=== PATIENT | female | born 2000 | race Asian ===

== ENCOUNTER 2021-02-27 21:10 | Emergency (ER) | payer OTHER, SELFPAY ==
--- NOTE | ~2021-02-27 | XR_ITS ---
EXAMINATION: XR chest 1V portable DATE: 02/27/2021 23:54 INDICATION: Cough, fever and runny nose. TECHNIQUE: frontal view of the chest was obtained. COMPARISON: None FINDINGS: The lungs are clear with no focal airspace opacities, pulmonary edema, pleural effusion or pneumothor ax. The cardiomediastinal silhouette is normal. S-shaped thoracic scoliosis. 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 IMPRESSION: 1. No acute cardiopulmonary disease. 2. 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 Reviewed, dictated and finalized at location A. [employer]
[2021-02-27 21:41] VITALS: BP 102/72; PULSE 144; RESP 20; TEMP 38.2; O2SAT 100
[2021-02-27] MEDS: ACETAMINOPHEN 500 MG TABLET 1000 MG PO (23:58)
[2021-02-27] MEDS: KETOROLAC 30 MG/ML VIAL (*BKC) IM (23:59)
--- NOTE | 2021-02-28 01:05 | ED.GENADULT ---
HPI - General Adult General Chief complaint: Upper Respiratory Infection Stated complaint: URI w/ fever Time Seen by Provider: 02/27/21 23:33 History of Present Illness HPI narrative: Patient is a 21-year-old female presents the emergency department with chief complaint of fever body aches and generalized malaise. The patient reports she has been vaccinated for Covid reports that she is feeling unwell reports that she has finals coming up and reports that she is also felt as her hearts been racing. Patient reports she had some posttussive nausea. Related Data Allergies Allergy/AdvReac Type Severity Reaction Status Date / Time No Known Allergies Allergy Verified 02/27/21 21:14 Review of Systems Review of Systems: A 10 system review of systems was completed on the patient and is negative except for what is stated in the HPI. Nursing and ancillary documentation was reviewed. Exam Narrative: GENERAL: Well-appearing, well-nourished, and in no acute distress. HEAD: Normocephalic, atraumatic. EYES: PERRLA and EOMI. ENT: Nares clear, no rhinorrhea or epistaxis. Mucous membranes moist. NECK: Supple. CHEST: Clear to auscultation. No respiratory distress. HEART: Regular rate and rhythm. No murmur heard. Normal peripheral pulses. ABDOMEN: Soft, nontender, nondistended, normal active bowel sounds. EXTREMITIES: Normal range of motion. No edema. SKIN: Warm, dry, no rash. NEURO: No focal deficits. Alert and oriented x3. PSYCH: Normal mood and affect. Course Course Emergency Course: Chest x-ray shows no focal infiltrate Patient is positive for influenza A Strep was negative Vital Signs Vital signs: Vital Signs Temperature 38.2 C H 02/27/21 21:41 Pulse Rate 144 H 02/27/21 21:41 Respiratory Rate 20 02/27/21 21:41 Blood Pressure 102/72 02/27/21 21:41 Pulse Oximetry 100 02/27/21 21:41 Temperature 38.2 C H 02/27/21 21:41 Pulse Rate 144 H 02/27/21 21:41 Respiratory Rate 20 02/27/21 21:41 Blood Pressure 102/72 02/27/21 21:41 Pulse Oximetry 100 02/27/21 21:41 Medical Decision Making Vital Signs Vital Signs: Vital Signs Temperature 38.2 C H 02/27/21 21:41 Pulse Rate 144 H 02/27/21 21:41 Respiratory Rate 20 02/27/21 21:41 Blood Pressure 102/72 02/27/21 21:41 Pulse Oximetry 100 02/27/21 21:41 Temperature 38.2 C H 02/27/21 21:41 Pulse Rate 144 H 02/27/21 21:41 Respiratory Rate 20 02/27/21 21:41 Blood Pressure 102/72 02/27/21 21:41 Pulse Oximetry 100 02/27/21 21:41 Lab Data Labs: Lab Results 02/28/21 Range/Units 00:31 SARS-CoV-2 RNA (RT-PCR) Pending Influenza A Screen Positive Reference Range: Negative Influenza B Screen Negative Reference Range: Negative Strep Screen Presumptive Negative *(Reference Range: Negative)* Discharge Plan Discharge Clinical Impression: Influenza A Patient Disposition: Home, Self-Care Condition: Stable Instructions: Antibiotic Form, Influenza (ED), Viral Syndrome (ED) Prescriptions: New oseltamivir [Tamiflu] 75 mg capsule 75 mg PO Q12H 5 Days Qty: 10 RF: 0 benzonatate 200 mg capsule 200 mg PO TID PRN (Reason: cough) Qty: 21 RF: 0 ondansetron 4 mg tablet,disintegrating 4 mg PO Q8H PRN (Reason: nausea and vomiting) Qty: 10 RF: 0 Follow-up/Referrals: UNKNOWN,DOCTOR [Primary Care Provider] - Cedrick Puckett MD [Physician] - Time of Disposition: 01:09
[2021-02-28 01:34] VITALS: PULSE 122; RESP 18; TEMP 37.7; O2SAT 98
[2021-02-28 14:20] LABS: SARS-CoV-2 RNA PCR Negative
== END 2021-02-28 01:30 | disposition home or self-care (01) ==
PROVIDERS: Emergency Provider Emergency Medicine
DX: J10.1 Influenza due to other identified influenza virus with other respiratory manifestations (principal); Z20.822 Contact with and (suspected) exposure to COVID-19
CPT/HCPCS: 71045; 87081; 87804; 87880; 96372; 99283; A9270; C9803; J1885; U0003; U0005

== ENCOUNTER 2024-10-08 08:22 | Outpatient (CLI) | payer BC, SELFPAY ==
--- NOTE | ~2024-10-08 | MMUS_ITS ---
EXAMINATION: US breast RT limited, MM diagnostic tien RT w raz INDICATION: 24-year old female; presents for evaluation of 2 palpable lumps in the right breast. COMPARISON: Baseline TECHNIQUE: Digital breast tomosynthesis CC and MLO views of the RIGHT breast and True lateral and spo t compression of the RIGHT breast were obtained with computer-aided detection to assist in interpreta tion of the study. Radiopaque skin markers were placed over the area of RIGHT breast palpable lumps. Targeted ultrasound of the right breast was performed first. RIGHT BREAST ULTRASOUND FINDINGS: There is no sonographic abnormality that correlates to the area of palpable lumps identified by the p atient. Diagnostic mammogram was then performed for complete evaluation. MAMMOGRAPHY FINDINGS: The breasts are heterogeneously dense, which may obscure small masses. There are no suspicious masses, calcifications, architectural distortion or any other abnormality in the right breast. No suspicious mammographic abnormality correlates to the radiopaque skin markers. IMPRESSION: No sonographic or mammographic findings correlates to the palpable lumps area in the right breast. RECOMMENDATION: Clinical management of patient's palpable lumps. Follow-up as clinically warranted. BI-RADS 1, NEGATIVE Reviewed, dictated and finalized at location B. IMPRESSION: No sonographic or mammographic findings correlates to the palpable lumps area i n the right breast. RECOMMENDATION: Clinical management of patient's palpable lumps. Follow-up as clinically warranted. BI-RADS 1, NEGATIVE
== END 2024-10-08 08:23 | disposition home or self-care (01) ==
PROVIDERS: PCP Emergency Medicine; Visit Provider Obstetrics & Gynecology
DX: N63.0 Unspecified lump in unspecified breast (principal)
CPT/HCPCS: 76642; 77061; 77065; G0279